=== PATIENT | female | born 2000 | race Caucasian/White ===

== ENCOUNTER 2023-04-24 05:42 | Emergency (ER) | payer MEDICAID, SELFPAY ==
[2023-04-24 05:49] VITALS: BP 141/93; PULSE 82; RESP 16; TEMP 36.7; O2SAT 98
--- NOTE | 2023-04-24 06:15 | ED_ITS ---
HPI - Fall General: Chief Complaint: Fall Stated Complaint: Fall Time Seen by Provider: 04/24/23 06:07 Source: patient Mode of arrival: ambulatory Limitations: no limitations History of Present Illness: This patient presents to the emergency department because she had a fall out of bed this morning approximately 4 AM. She states she has PTSD and occasionally has nightmares and her responses to jump out of bed when this occurs. She states that had not occurred for some time. She has a height of her bed elevated for storage as a [employer] dormitory room. She states it was approximately 3 feet tall. She states that she landed on her chest when she jumped out of bed. She denies headache arm or leg pain or other discomfort at this time. She states it hurts to take a deep breath. complaint: fall Fall from: out of bed Place fall occurred: school Loss of consciousness: None Location of injury: chest Associated symptoms-after fall: Reports chest pain; Denies abdominal pain, headache(s) or neck pain Review of Systems Eyes: Denies: change in vision or blurry vision ENMT: Denies: odynophagia Card: Reports: chest pain; Denies: palpitations, irregular heart rhythm, syncope or pre-syncope Resp: Denies: dyspnea, productive cough or non-productive cough GI: Denies: abdominal pain, nausea or vomiting Musc: Denies: neck pain, back pain, extremity pain or extremity swelling Skin/Breast: Denies: rash Neuro: Denies: headache(s), numbness in extremities or weakness in extremities Psych: Reports: anxiety; Denies: visual hallucinations or auditory hallucinations Physical Exam Narrative: EXAM NARRATIVE: She is alert in no acute distress able to answer questions in a goal-directed fashion. She is noted to be sitting up in the examination bed and appears to move normally. Const: COMMON NORMALS: no acute distress, patient oriented x3, healthy appearing and alert GENERAL APPEARANCE: cooperative and comfortable NUTRITIONAL APPEARANCE: overweight HENMT: COMMON NORMALS: normocephalic, atraumatic, Normal nasal mucous membranes and turbinates present, moist oral mucous membranes and oropharynx normal HEAD & SCALP: normocephalic and atraumatic FACE & SINUS: normal facial exam NOSE: Normal nasal mucous membranes and turbinates present OTHER: No evidence of malocclusion she opens and shuts her mouth without difficulty. No intraoral injury. Eye: COMMON NORMALS: Equal, round and reactive pupils present, EOMs intact shun aterally and conjunctivae normal CONJUNCTIVA: Yes conjunctivae normal PUPIL: Yes Equal, round and reactive pupils present Neck/C-Spine: CERVICAL SPINE: Yes cervical ROM normal, No Cervical spine tenderness, No step off deformity, No Paracervical muscle tenderness, No Paracervical spasm and No Trapezius muscle tenderness OTHER: She is able to range her neck 45 degrees left and right 15 degrees forward bending and 15 degrees backward bending without any difficult difficulty or discomfort voluntarily. She has no midline tenderness or step-off. Chest: COMMONS NORMALS: normal inspection of the chest OTHER: She has tenderness to palpation of the costochondral junction. No subcutaneous emphysema is noted. No bruising or other skin wounds noted. Twisting and turning of her trunk to the left and right doses minimal if any discomfort there is no palpable crepitance. Resp: COMMON NORMALS: normal respiratory effort, No retractions and clear to auscultation bilaterally AUSCULTATION: clear to auscultation bilaterally Cardio: COMMON NORMALS: regular rate, regular rhythm and Peripheral pulses 2+ throughout RATE: regular rate RHYTHM: regular rhythm PERIPHERAL PULSES: Peripheral pulses 2+ throughout GI: COMMON NORMALS: Normal to inspection, nondistended, normoactive bowel sounds present and Soft to palpation PALPATION: Yes Soft to palpation : COMMON NORMALS: Yes no CVA tenderness BLADDER/KIDNEY EXAM: Yes no CVA tenderness Back/Pelvis: COMMON NORMALS: no CVA tenderness, thoracic and lumbar spine normal to inspection, no thoracic nor lumbar tenderness and thoraco-lumbar ROM normal Extremity: COMMON NORMALS: normal to inspection, full ROM and capillary refill normal Neuro: COMMON NORMALS: patient oriented x3, moves all extremities, no focal motor deficits and no sensory deficits noted SENSORIUM/ORIENTATION: Yes alert CRANIAL NERVES: Yes CN normal except as noted Course Reevaluation(s): Reevaluation #1: Patient was reevaluated and no new findings on reevaluation she is comfortable. Discussed my interpretation of her radiographs no evidence of a serious injury at this time and expected course with patient. She voiced understanding. Stable for discharge at this time. Time: 08:07 Vital Signs: Vital signs: Vital Signs Temperature 98.1 F 04/24/23 05:49 Pulse Rate 82 04/24/23 05:49 Respiratory Rate 16 04/24/23 05:49 Blood Pressure 141/93 04/24/23 05:49 Pulse Oximetry 98 04/24/23 05:49 MDM - Fall Medical Decision Making [place] who presented to the emergency department after having a nightmares/PTSD event during sleep causing her to leave her bed which was ammon vated approximately 3 feet off the floor. She apparently fell during this evolution landing on her chest. No other injuries claimed at the time of the emergency department evaluation. Her evaluation revealed anterior chest tenderness but no evidence to suggest fractured rib, pneumothorax etc. by secondary examination findings such as subcutaneous emphysema, crepitance etc. Her vital signs were normal including pulse oximetry respiratory rate etc. Her lung greco were clear. No evidence of other bony injury axial spine including cervical spine were nontender and had normal ranges of motion. Imaging was obtained that included PA and lateral chest which revealed no obvious bony injury, pneumothorax or other obvious pathology to the emergency physician. She was observed in the emergency department for period time with a stable examination is suitable to be discharged home. She plans on lowering her bed back to its normal height to prevent or lessen any likelihood of recurrent inju ry from nightmares or leaving her bed. Also discussed return precautions. XR interpretation done by ED provider, pending radiology final review (No acute process) Discharge Plan Discharge Patient Disposition: Home Clinical Impression: Chest wall contusion Qualifiers: Encounter type: initial encounter Laterality: unspecified laterality Qualified Code(s): S20.219A - Contusion of unspecified front wall of thorax, initial encounter Condition: Stable Prescriptions: No Action No Known Home Medications Discharge Orders: Discharge ED (Routine); Ordered 04/24/23 Ordered By: Yunior Xiao Discharge Diet: Usual diet Discharge Activity: Increase activity as tolerated Patient Instructions: Opioid Safety, Pain Management Activity Restrictions/Additional Instructions: As we discussed while you are in the emergency department your x-rays did not r eveal any evidence of rib fracture or other serious injury however if you develop any difficulty breathing, increasing pain or other concerns return to the emergency department immediately for evaluation. As with many injuries to the chest and trunk of your body these areas may be sore particularly with increased activity twisting turning deep breathing etc. for several days up to a couple of weeks. If you have prolonged pain over 2 weeks or increasing pain or other concerns return to the emergency department for reevaluation. You may take [id number] dosing of either ibuprofen or Aleve or acetaminophen for any discomfort. Coding Level of Care Code ED [place] for Trish Anton
--- NOTE | 2023-04-24 06:16 | XR_ITS ---
WS: [id number] Exam: XR chest 2V* [id number] Date/Time of Exam: 04/24/2023 6:45 AM Reason For Exam: fall out of bed and cp No priors. Findings: The lungs are clear and fully expanded. Costophrenic angles are sharp. No infiltrates. Bronchovascula r relief appears normal. Cardiac silhouette is unremarkable. Bony elements are intact. IMPRESSION: Unremarkable chest radiograph.
== END 2023-04-24 08:26 | disposition home or self-care (01) ==
PROVIDERS: Emergency Provider Emergency Medicine
DX: S20.219A Contusion of unspecified front wall of thorax, initial encounter (principal); W06.XXXA Fall from bed, initial encounter
CPT/HCPCS: 71046; 99283

== ENCOUNTER 2023-04-28 12:07 | Emergency (ER) | payer MEDICAID, SELFPAY ==
[2023-04-28 12:15] VITALS: BP 149/76; PULSE 115; RESP 16; TEMP 38.7; O2SAT 100; BMI 40.7
[2023-04-28] MEDS: acetaminophen 500 mg Tablet 1000 MG PO (13:20)
[2023-04-28 13:22] VITALS: O2SAT 98
[2023-04-28 13:25] VITALS: PULSE 109; O2SAT 99
--- NOTE | 2023-04-28 13:30 | ED_ITS ---
HPI - General Adult 2 General: Chief complaint: COVID symptoms Stated complaint: fever, body aches Time Seen by Provider: 04/28/23 13:19 Source: patient Mode of arrival: ambulatory Limitations: no limitations History of Present Illness: Patient is a 23-year-old female here for complaints of burning up /fevers, sore throat, cough, congestion, body aches, headache. She states symptoms started around 3 AM this morning. She has had nausea but no episodes of vomiting or diarrhea. 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 Patient denies rash, visual changes, neck pain/stiffness, abdominal pain, urinary complaints. Onset (ago): hour(s) Severity: moderate Relieving factors: none Exacerbating factors: none Associated symptoms: Reports cough, fevers/chills, headache(s), malaise and nausea; Deny chest pain, dyspnea, rash, palpitations, syncope or vomiting Treatments prior to arrival: none Review of Systems 2 Const: Reports: fever(s), chills, body aches and malaise Eyes: Denies: change in vision, blurry vision, photophobia, eye discharge, floaters or seeing flashes ENMT: Reports: throat pain, odynophagia, nasal discharge and nasal congestion; Denies: ear or mastoid pain or sinus pain Card: Denies: chest pain, palpitations, irregular heart rhythm, edema, swelling of feet/ankles, lightheadedness, syncope, pre-syncope, dyspnea on exertion or orthopnea Resp: Reports: non-productive cough and chest congestion; Denies: dyspnea, wheezing or hemoptysis GI: Reports: nausea; Denies: abdominal pain, vomiting or diarrhea : Denies: flank pain or dysuria Musc: Reports: other (generalized body aches); Denies: neck pain, back pain, extremity pain or joint pain Skin/Breast: Denies: rash Neuro: Reports: headache(s); Denies: numbness in extremities, weakness in extremities, sensory changes or dizziness Physical Exam 2 Const: COMMON NORMALS: patient oriented x3, no limitations, alert and well nourished GENERAL APPEARANCE: cooperative, in distress (appears ill) and ill appearing (febrile) NUTRITIONAL APPEARANCE: obese morbidly obese O RIENTATION/CONSCIOUSNESS: Yes awake, Yes oriented to person, Yes oriented to place and Yes oriented to time HENMT: COMMON NORMALS: normocephalic, atraumatic, hearing grossly normal bilaterally, external ears normal, EAC's normal, TM's normal bilaterally, Normal external nose present, Normal nasal mucous membranes and turbinates present, moist oral mucous membranes and oropharynx normal HEAD & SCALP: normal to inspection, normocephalic and atraumatic FACE & SINUS: normal facial exam and sinuses nontender NOSE: Normal external nose present and Normal nasal mucous membranes and turbinates present EXTERNAL EAR: Yes external ears normal E XTERNAL AUDITORY CANAL: EAC's normal TYMPANIC MEMBRANE: TM's normal bilaterally MOUTH: Normal oral and palatal mucosa present and lip normal T HROAT: posterior oropharynx normal, tonsils normal and uvula midline Eye: COMMON NORMALS: Equal, round and reactive pupils present, EOMs intact bilaterally and conjunctivae normal CONJUNCTIVA: Yes conjunctivae normal P UPIL: Yes Equal, round and reactive pupils present Neck/C-Spine: COMMON NORMALS: no lymphadenopathy Resp: COMMON NORMALS: normal respiratory effort and clear to auscultation bilaterally AUSCULTATION: clear to auscultation bilaterally Cardio: COMMON NORMALS: regular rhythm RATE: tachycardic (pt febrile at 101.7) RHYTHM: regular rhythm GI: COMMON NORMALS: Normal to inspection, nondistended, normoactive bowel sounds present, Soft to palpation and non-tender PALPATION: Yes Soft to palpation : COMMON NORMALS: Yes no CVA tenderness BLADDER/KIDNEY EXAM: Yes no CVA tenderness Back/Pelvis: COMMON NORMALS: no CVA tenderness and thoracic and lumbar spine normal to inspection Extremity: COMMON NORMALS: normal to inspection GENERAL: Yes normal exam except as noted Neuro: COBY COMA SCALE: document GCS findings Coby coma scale eye opening: Spontaneous Coby coma scale verbal response: Orientated [place] coma scale motor response: Obey commands Coby coma scale total score: 15 COMMON NORMALS: patient oriented x3, moves all extremities, no focal motor deficits and no sensory deficits noted SENSORIUM/ORIENTATION: Yes alert, Yes oriented to person, Yes oriented to place and Yes oriented to time Skin: COMMON NORMALS: no rashes or lesions noted GENERAL SKIN EXAM: no rashes or lesions noted Course 2 Vital Signs: Vital signs: Vital Signs Temperature 99.2 F 04/28/23 15:00 Pulse Rate 98 04/28/23 15:39 Respiratory Rate 18 04/28/23 15:39 Blood Pressure 140/78 04/28/23 15:39 Pulse Oximetry 96 04/28/23 15:39 Oxygen Delivery Me thod Room Air 04/28/23 15:00 MDM - General Adult Medical Decision Making Patient here with symptoms consistent with viral/flu-like illness. Her influenza and COVID testing were negative. Blood work obtained which shows a normal white count. Remainder of labs are ultimately unremarkable. Her UA is clear. CXR unremarkable. At this time patient will be discharged home with instructions for conservative therapies. Return to ED precautions given. Medical Records I reviewed the patient's medical records. Lab Data I reviewed the patient's lab results. 04/28/23 14:18 04/28/23 14:18 Radiology Impressions Chest X-Ray 04/28/23 14:05 IMPRESSION: 1. No acute cardiopulmonary abnormality. Laboratory Results WBC 10.98 10^3/uL (3.29-11.43) 04/28/23 14:18 RBC 5.28 10^6/uL (3.85-5.65) 04/28/23 14:18 Hgb 13.30 g/dL (11.27-16.99) 04/28/23 14:18 Hct 41.5 % (36-47) 04/28/23 14:18 MCV 78.6 fl (85-98) L 04/28/23 14:18 MCH 25.2 pg (27-33) L 04/28/23 14:18 MCHC 32.0 g/dL (30-55) 04/28/23 14:18 RDW 13.8 % (12.1-15.1) 04/28/23 14:18 Plt Count 395 10^3/cmm (157-399) 04/28/23 14:18 MPV 8.2 fL (7.4-10.4) 04/28/23 14:18 Neut % (Auto) 81.2 % 04/28/23 14:18 Lymph % (Auto) 7.5 % 04/28/23 14:18 [place] % (Auto) 9.7 % 04/28/23 14:18 Eos % (Auto) 0.7 % 04/28/23 14:18 Baso % (Auto) 0.7 % 04/28/23 14:18 Neut # (Auto) 8.92 10^3/uL (1.8-7.7) H 04/28/23 14:18 Lymph # (Auto) 0.8 10^3/uL (0.8-4.8) 04/28/23 14:18 [place] # (Auto) 1.1 10^3/uL (0.2-0.9) H 04/28/23 14:18 Eos # (Auto) 0.1 10^3/uL (0.0-0.8) 04/28/23 14:18 Baso # (Auto) 0.1 10^3/uL (0.0-0.1) 04/28/23 14:18 Nucleated RBC % (auto) 0 % 04/28/23 14:18 Nucleated RBCs # 0.0 /100WBC 04/28/23 14:18 Sodium 135 mmol/L (136-145) L 04/28/23 14:18 Potassium 3.9 mmol/L (3.5-5.1) 04/28/23 14:18 Chloride 102 mmol/L (98-107) 04/28/23 14:18 Carbon Dioxide 21 mmol/L (22-29) L 04/28/23 14:18 Anion Gap 15.9 (5-19) 04/28/23 14:18 BUN 8 mg/dL (6-20) 04/28/23 14:18 Creatinine 0.7 mg/dL (0.5-0.9) 04/28/23 14:18 GFR Calculation 103.7 mL/min (90-130) 04/28/23 14:18 Glucose 109 mg/dL (65-115) 04/28/23 14:18 Calculated Osmolality 279 mOsm/kg (285-295) L 04/28/23 14:18 Calcium 9.2 mg/dL (8.5-10.5) 04/28/23 14:18 Total Bilirubin 0.2 mg/dL (0.15-1.2) 04/28/23 14:18 AST 20 U/L (0-32) 04/28/23 14:18 ALT 21 U/L (0-33) 04/28/23 14:18 Alkaline Phosphatase 96 U/L (35-105) 04/28/23 14:18 Total Protein 7.3 g/dL (6.6-8.7) 04/28/23 14:18 Albumin 4.1 g/dL (3.5-5.2) 04/28/23 14:18 Globulin 3.2 g/dL (1.3-4.6) 04/28/23 14:18 Urine Color Light yellow (Yellow) 04/28/23 14:11 Urine Appearance Clear (CLEAR) 04/28/23 14:11 Urine pH 7 (5-7) 04/28/23 14:11 Ur Specific [place] 1.010 (1.005-1.030) 04/28/23 14:11 Urine Protein Neg (Negative) 04/28/23 14:11 Urine Glucose (UA) Norm (Normal) 04/28/23 14:11 Urine Ketones Negative (Negative) 04/28/23 14:11 Urine Blood Neg (Negative) 04/28/23 14:11 Urine Nitrate Negative (Negative) 04/28/23 14:11 Urine Bilirubin Neg (Negative) 04/28/23 14:11 Urine Urobilinogen Norm mg/dL (Negative) 04/28/23 14:11 Ur Leukocyte Esterase Negative (Negative) 04/28/23 14:11 Influenza Type A Ag negative (Negative) 04/28/23 13:25 Influenza Type B Ag negative (Negative) 04/28/23 13:25 SARS-CoV-2 Ag (Rapid) negative (Negative) 04/28/23 13:25 All radiology interpretation(s) finalized by discharge Discharge Plan Discharge Patient Disposition: Home Clinical Impression: Viral illness Condition: Stable Prescriptions: No Action No Known Home Medications Discharge Orders: Discharge ED (Routine); Ordered 04/28/23 Ordered By: Faina Lomas Patient Instructions: Viral Syndrome - Adult Coding Level of Care Code ED [employer] for Trish Anton
[2023-04-28 13:56] LABS: Influenza A by IFA negative (Negative); Influenza B by IFA negative (Negative)
[2023-04-28 13:57] LABS: SARS Covid-2 Antigen negative (Negative)
[2023-04-28 14:00] VITALS: PULSE 119; RESP 16; TEMP 39.1; O2SAT 97
--- NOTE | 2023-04-28 14:05 | XRR_ITS ---
PROCEDURE INFORMATION: Exam: XR Chest Exam date and time: 04/28/2023 2:11 PM Age: 23 years old Clinical indication: Cough and fever; Additional info: Cough/fevers TECHNIQUE: Imaging protocol: Radiologic exam of the chest. Views: 1 view. COMPARISON: CR XR chest 2V* [id number] 04/24/2023 6:55 AM FINDINGS: Lungs: No focal consolidation. Pleural spaces: No evidence of pneumothorax or pleural effusion. Heart/Mediastinum: Cardiomediastinal silhouette is within normal limits. Bones/joints: No evidence of acute osseous abnormality. XR/XR chest 1V portable [id number] IMPRESSION: 1. No acute cardiopulmonary abnormality.
[2023-04-28 14:17] LABS: Add Urine Microscopic? NO; Charge for UA Resulting for Rev
[2023-04-28 14:19] LABS: Bilirubin Urine Neg (Negative); Blood Urine Neg (Negative); Glucose Urine UA Norm (Normal); Ketones Urine Negative (Negative); Leukocyte Esterase Urine Negative (Negative); Nitrate Urine Negative (Negative); Protein Urine Neg (Negative); Urine Appearance Clear (CLEAR); Urine Color Light yellow (Yellow); Urobilinogen Urine Norm (Negative); pH Urine 7 (5-7)
[2023-04-28 14:45] LABS: Basophils # 0.1 10^3/uL (0.0-0.1); Basophils % 0.7 %; Eosinophils # 0.1 10^3/uL (0.0-0.8); Eosinophils % 0.7 %; Hematocrit 41.5 % (36-47); Lymphocytes # 0.8 10^3/uL (0.8-4.8); Lymphocytes % 7.5 %; Mean Corpuscular Hemoglobin 25.2 pg (27-33); Mean Corpuscular Volume 78.6 fl (85-98); Mean Platelet Volume 8.2 fL (7.4-10.4); Monocytes # 1.1 10^3/uL (0.2-0.9); Monocytes % 9.7 %; Neutrophils # 8.92 10^3/uL (1.8-7.7); Neutrophils % 81.2 %; Nucleated Red Blood Cells % 0 %; Platelet Count 395 10^3/cmm (157-399); Red Blood Count 5.28 10^6/uL (3.85-5.65); Red Cell Distribution Width 13.8 % (12.1-15.1); White Blood Count 10.98 10^3/uL (3.29-11.43)
[2023-04-28 15:00] VITALS: PULSE 115; TEMP 37.3; O2SAT 95
[2023-04-28 15:00] LABS: Alanine Aminotransferase 21 U/L (0-33); Albumin Level 4.1 g/dL (3.5-5.2); Alkaline Phosphatase 96 U/L (35-105); Chloride 102 mmol/L (98-107); Potassium 3.9 mmol/L (3.5-5.1)
[2023-04-28 15:16] LABS: Aspartate Amino Transferase 20 U/L (0-32); Blood Urea Nitrogen 8 mg/dL (6-20); Calcium 9.2 mg/dL (8.5-10.5); Globulin 3.2 g/dL (1.3-4.6); Glomerular Filtration Rate 103.7 mL/min (90-130); Glucose 109 mg/dL (65-115); Total Bilirubin 0.2 mg/dL (0.15-1.2); Total Protein 7.3 g/dL (6.6-8.7)
[2023-04-28 15:18] LABS: Anion Gap 15.9 (5-19); Carbon Dioxide 21 mmol/L (22-29); Osmolality Calculated 279 mOsm/kg (285-295); Sodium 135 mmol/L (136-145)
[2023-04-28 15:39] VITALS: BP 140/78; PULSE 98; RESP 18; O2SAT 96
== END 2023-04-28 15:44 | disposition home or self-care (01) ==
PROVIDERS: Emergency Medicine; Emergency Provider Physician Assistant
DX: B34.9 Viral infection, unspecified (principal); Z11.52 Encounter for screening for COVID-19
CPT/HCPCS: 71045; 80053; 81003; 85025; 87426; 87804; 99284

== ENCOUNTER 2023-05-27 16:06 | Inpatient (IN) | payer MEDICAID, SELFPAY ==
[2023-05-27 16:08] VITALS: BP 139/88; PULSE 72; RESP 16; TEMP 36.7; O2SAT 99
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
--- NOTE | 2023-05-27 16:52 | ECG_ITS ---
[facility] Test Date: 2023-05-27 Pat Name: Mario Hayward Department: Room: Gender: Female Decorator Hand: : 2000 Requested By: Jalyn Painter Order Number: [id number] Pauline MD: Maia Graff M.D. Measurements Intervals [place] Rate: 72 P: 49 [place]: 193 QRS: 26 QRSD: 93 T: 34 QT: 376 QTc: 412 Interpretive Statements SINUS RHYTHM No previous ECG available for comparison Electronically Signed On 05-28-2023 10:49:54 [employer] by Maia Graff M.D. [email or web address]
[2023-05-27 16:56] LABS: Basophils # 0.1 10^3/uL (0.0-0.1); Basophils % 0.4 %; Eosinophils # 0.2 10^3/uL (0.0-0.8); Lymphocytes # 3.8 10^3/uL (0.8-4.8); Lymphocytes % 33.8 %; Mean Corpuscular HGB Conc 31.5 g/dL (30-55); Mean Corpuscular Hemoglobin 25.2 pg (27-33); Mean Platelet Volume 8.2 fL (7.4-10.4); Monocytes % 8.5 %; Neutrophils # 6.13 10^3/uL (1.8-7.7); Neutrophils % 54.9 %; Nucleated Red Blood Cells % 0 %; Platelet Count 364 10^3/cmm (157-399); Red Cell Distribution Width 13.9 % (12.1-15.1); White Blood Count 11.17 10^3/uL (3.29-11.43)
[2023-05-27 17:28] LABS: Alanine Aminotransferase 16 U/L (0-33); Albumin Level 3.8 g/dL (3.5-5.2); Alkaline Phosphatase 82 U/L (35-105); Anion Gap 11.9 (5-19); Aspartate Amino Transferase 14 U/L (0-32); Blood Urea Nitrogen 6 mg/dL (6-20); Calcium 8.6 mg/dL (8.5-10.5); Carbon Dioxide 27 mmol/L (22-29); Chloride 108 mmol/L (98-107); Glomerular Filtration Rate 103.7 mL/min (90-130); Glucose 101 mg/dL (65-115); Osmolality Calculated 294 mOsm/kg (285-295); Potassium 3.9 mmol/L (3.5-5.1); Sodium 143 mmol/L (136-145); Thyroid Stimulating Hormone 2.28 uIU/mL (0.27-4.20); Total Bilirubin 0.2 mg/dL (0.15-1.2); Total Protein 6.8 g/dL (6.6-8.7)
[2023-05-27 17:30] LABS: Acetaminophen < 5.0 ug/mL (10-30); Alcohol Level < 10 mg/dL (0-10); Salicylate < 0.3 mg/dL (3-10)
[2023-05-27 19:36] LABS: HCG Qualitative Urine. Negative (Negative)
[2023-05-27 19:49] LABS: Add Urine Microscopic? YES; Bilirubin Urine Neg (Negative); Blood Urine Neg (Negative); Glucose Urine UA Norm (Normal); Ketones Urine Negative (Negative); Leukocyte Esterase Urine 2+ (Negative); Nitrate Urine Negative (Negative); Protein Urine Neg (Negative); Specific Gravity, Urine 1.025 (1.005-1.030); Urine Appearance Hazy (CLEAR); Urine Color Yellow (Yellow); Urobilinogen Urine Norm (Negative); pH Urine 5 (5-7)
[2023-05-27 19:56] LABS: Add Urine Culture? No; Amphetamines Screen Urine Negative (Negative); Bacteria Urine TRACE /hpf; Barbiturates Screen Urine Negative (Negative); Benzodiazepines Screen Urine Negative (Negative); Cocaine Screen Urine Negative (Negative); Mucus Urine 3+ /hpf; Opiate Screen Urine Negative (Negative); PCP Screen Urine Negative (Negative); RBC Urine 0-4 /hpf (0-2); Squamous Epithelial Cell Urine 15-25 /hpf (0-5); THC Screen Urine Negative (Negative); Transitional Epi Cells Urine 0-4 /hpf
[2023-05-27 20:25] VITALS: BP 151/92; PULSE 72; RESP 18; TEMP 36.8; O2SAT 97
[2023-05-27 20:30] VITALS: BP 139/88; PULSE 72; RESP 16; TEMP 36.7; O2SAT 99
[2023-05-27 21:01] VITALS: RESP 16
[2023-05-28 06:00] VITALS: BP 142/83; PULSE 70; RESP 18; TEMP 36.6; O2SAT 98
[2023-05-28] MEDS: ibuprofen 600 mg Tablet PO (09:03)
[2023-05-28] MEDS: OLANZapine 5 mg ODT PO (11:31)
[2023-05-28 13:51] VITALS: BP 109/70; PULSE 106; RESP 16; TEMP 36.8; O2SAT 99
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
[2023-05-28] MEDS: prazosin 1 mg Capsule PO (20:24)
[2023-05-28 20:59] VITALS: BP 138/79; PULSE 79; RESP 17; TEMP 36.4; O2SAT 99
[2023-05-29 06:00] VITALS: BP 132/85; PULSE 87; RESP 16; TEMP 36.8; O2SAT 98
--- NOTE | 2023-05-29 09:26 | PC.NURSE ---
Watching tv and talking with other patients this morning, then went to room to rest after breakfast. Patient endorses poor sleep and occasional vh last night of her cat in the corner, although she does acknowledge that she knows they aren't real. Patient denies ah and si/hi.
[2023-05-29] MEDS: buPROPion XL (24 HR) 150 mg Tablet PO (09:35)
[2023-05-29 14:00] VITALS: BP 95/62; PULSE 66; RESP 12; O2SAT 95
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
[2023-05-29] MEDS: prazosin 1 mg Capsule PO (20:23)
[2023-05-29 20:44] VITALS: BP 113/73; PULSE 73; RESP 18; TEMP 36.9; O2SAT 93
[2023-05-30 06:00] VITALS: BP 131/88; PULSE 78; RESP 20; TEMP 36.7; O2SAT 98
[2023-05-30] MEDS: buPROPion XL (24 HR) 150 mg Tablet PO (08:03)
[2023-05-30 14:00] VITALS: BP 130/87; PULSE 90; RESP 13; TEMP 36.6; O2SAT 97
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
[2023-05-30 17:56] VITALS: BP 130/87; PULSE 90; RESP 13; TEMP 36.6; O2SAT 97
[2023-05-30] MEDS: prazosin 1 mg Capsule PO (18:10)
--- NOTE | 2023-05-30 18:11 | PC.NURSE ---
Addendum entered by Christiane Martinez LPN 05/30/23 18:14: Dr. harris'd to give pt 1mg prazosin for bedtime tonight with prescriptions being filled in am at [facility] in [facility]. Original Note: pt being discharged home. [facility] pharmacy closed until tomorrow.
--- NOTE | 2023-05-31 10:02 | PC.NURSE ---
called in bupropion hcl 150mg daily 30 days #30 count with 1 refill and prazosin 1mg at bedtime 30 days,#30 count with 1 refill to kadi @[id number]
== END 2023-05-30 18:41 | disposition home or self-care (01) | DRG 880 ==
LOC: ER 19:24 → NP 19:41
PROVIDERS: Admitting Provider Psychiatry & Neurology Psychiatry; Emergency Provider Emergency Medicine; Visit Provider Psychiatry & Neurology Psychiatry
DX: F41.9 Anxiety disorder, unspecified (principal); F32.A Depression, unspecified; Z62.812 Personal history of neglect in childhood; Z62.810 Personal history of physical and sexual abuse in childhood; F43.10 Post-traumatic stress disorder, unspecified; F12.90 Cannabis use, unspecified, uncomplicated; Z91.51 Personal history of suicidal behavior; Z81.3 Family history of other psychoactive substance abuse and dependence; Z81.8 Family history of other mental and behavioral disorders; F60.89 Other specific personality disorders
CPT/HCPCS: 36415; 80053; 80306; 80307; 81001; 81025; 84443; 85025; 93005; 97150; 97165; 99285